=== PATIENT | male | born 1980 | race Caucasian/White ===

== ENCOUNTER 2018-05-03 13:43 | Emergency (ER) | payer OTHER ==
[~2018-05-03] VITALS: Ht 180.3 cm; Wt 100.4 kg
[~2018-05-03 13:43] MED LIST: CLIN300C8 PO
[2018-05-03] MEDS ORDERED: IV NORMAL SALINE 1000ML BAG 1,000 ML IV ONE (14:00)
[2018-05-03 14:07] LABS: BILIRUBIN,URINE NEGATIVE (NEG); CLARITY,URINE CLEAR; COLOR,URINE YELLOW; NITRITE,URINE NEGATIVE (NEG); PH,URINE 6.5; PROTEIN,URINE NEGATIVE (NEG-TRACE); UROBILINOGEN,URINE 0.2 mg/dL (0.2 mg/dL)
[2018-05-03 14:14] LABS: BACTERIA,URINE 0 /HPF (0-FEW); RBC,URINE 0 /HPF (0-2); WBC,URINE 0 /HPF (0-4)
[2018-05-03 14:25] LABS: BASO # 0.1 x10^3/uL (0.0-0.2); BASO % 1 % (0-3); EOS # 0.3 x10^3/uL (0.0-0.7); EOS % 3 % (0-3); HEMATOCRIT 45.5 % (39.0-53.0); LYMPH # 2.7 x10^3/uL (1.0-4.8); LYMPH % 26 % (24-48); MEAN CORPUSCULAR HEMOGLOBIN 32 pg (25-35); MEAN CORPUSCULAR HGB CONC 35 g/dL (31-37); MEAN CORPUSCULAR VOLUME 91 fL (79-100); MONO # 1.1 x10^3/uL (0.0-1.1); MONO % 11 % (0-9); NEUT % 59 % (31-73); PLATELET COUNT 389 x10^3/uL (140-400); RED BLOOD COUNT 5.01 x10^6/uL (4.30-5.70); RED CELL DISTRIBUTION WIDTH 13.8 % (11.5-14.5); WHITE BLOOD COUNT 10.2 x10^3/uL (4.0-11.0)
[2018-05-03] MEDS ORDERED: ONDANSETRON PF 4 MG/2 ML VIAL. IV ONE (14:30)
[2018-05-03] MEDS ORDERED: KETOROLAC 30 MG/ML VIAL. IV ONE (14:30)
[2018-05-03] MEDS ORDERED: IOHEXOL 300 MG/ML 100ML VIAL. IV ONE (14:45)
[2018-05-03] MEDS ORDERED: CONTRAST GIVEN. MC PRN (14:45)
[2018-05-03 15:05] LABS: CREATININE 0.9 mg/dL (0.7-1.3); GFR 94.4; POTASSIUM 3.7 mmol/L (3.5-5.1)
[2018-05-03 15:11] LABS: ALBUMIN 3.9 g/dL (3.4-5.0); ALBUMIN/GLOBULIN RATIO 1.1 (1.0-1.7); TOTAL BILIRUBIN 0.2 mg/dL (0.2-1.0); TOTAL PROTEIN 7.4 g/dL (6.4-8.2)
--- NOTE | 2018-05-03 15:47 | RAD ---
CT chest, abdomen and pelvis with contrast 05/03/2018 CLINICAL INDICATION: A days post cholecystectomy with pain radiating to the back. COMPARISON: None. TECHNIQUE: Multiple CT images of the chest, abdomen and pelvis were obtained following intravenous ministration of 75 mL Omnipaque 300. *One or more of the following individualized dose reduction techniques were utilized for this examination: 1. Automated exposure control. 2. Adjustment of the mA and/or kV according to patient size. 3. Use of iterative reconstruction technique. FINDINGS: Heart size is normal without significant pericardial effusion. The thoracic aorta is normal in caliber. No axillary, mediastinal or hilar lymphadenopathy. The central airways are patent. No pleural effusion, pneumothorax or focal consolidation. There are few prominent endplate Schmorl's node deformities in the thoracic spine. There is a small focal lucency at the T5 vertebral body which may represent focal osteopenia or benign intraosseous meningioma. Abdomen and pelvis: Liver, spleen, adrenal glands, pancreas and kidneys are unremarkable apart from a few bilateral right renal hypodensities which are too small to definitively characterize, though statistically likely cysts. No hydronephrosis. Cholecystectomy with no fluid collection in the operative bed. No abdominal free fluid. No pneumoperitoneum. Abdominal aorta is normal in caliber. Major portal veins are patent. No retroperitoneal or mesenteric lymphadenopathy. Small and large bowel loops are normal in caliber without obstruction. Prior appendectomy. Urinary bladder, prostate and seminal vesicles are unremarkable. No iliac or inguinal lymphadenopathy. Prominent Schmorl's node deformities at the inferior endplate of L1 and superior endplate of L3. IMPRESSION: CHEST: No acute thoracic process. Abdomen and pelvis: 1. Cholecystectomy with no gallbladder fossa loculated fluid collection, pneumoperitoneum or abdominal free fluid. 2. No acute abdominal or pelvic process. Electronically signed by: Neil Elizabeth MD (05/03/2018 3:43 PM) [facility]
--- NOTE | 2018-05-03 15:56 | PHYS DOC ---
Past Medical History Past Medical History: Kidney Stone Past Surgical History: Cholecystectomy, Other Additional Past Surgical Histo: kidney stone removal, flexor tendon repair left hand, left leg ORIF Additional Information: 1 PPD Alcohol Use: None Drug Use: None Adult General Chief Complaint Chief Complaint: ABDOMINAL PAIN HPI HPI Patient is a 37 year old male who presents with increased pain following a cholecystectomy 8 days ago. The patient states that the pain is shooting and through his back. He has been taking ibuprofen for pain. He denies shortness of breath or chest pain. Review of Systems Review of Systems Constitutional: Denies fever or chills [] Eyes: Denies change in visual acuity, redness, or eye pain [] HENT: Denies nasal congestion or sore throat [] Respiratory: Denies cough or shortness of breath [] Cardiovascular: No additional information not addressed in HPI [] GI: See history of present illness : Denies dysuria or hematuria [] Musculoskeletal: Denies back pain or joint pain [] Integument: Denies rash or skin lesions [] Neurologic: Denies headache, focal weakness or sensory changes [] Endocrine: Denies polyuria or polydipsia [] All other systems were reviewed and found to be within normal limits, except as documented in this note. Current Medications Current Medications Current Medications Medications (Trade) Dose Ordered Sig/Dimitrios Start Time Stop Time Status Last Admin Dose Admin Info (CONTRAST GIVEN -- Rx MONITORING) 1 each PRN DAILY PRN 05/03/18 14:45 05/05/18 14:44 Iohexol (Omnipaque 300 Mg/ml) 75 ml 1X ONCE 05/03/18 14:45 05/03/18 14:46 DC Ketorolac Tromethamine (Toradol 30mg Vial) 30 mg 1X ONCE 05/03/18 14:30 05/03/18 14:31 DC 05/03/18 14:31 30 MG Ondansetron HCl (Zofran) 4 mg 1X ONCE 05/03/18 14:30 05/03/18 14:31 DC 05/03/18 14:31 4 MG Sodium Chloride 1,000 ml @ 1,000 mls/hr 1X ONCE 05/03/18 14:00 05/03/18 14:59 DC 05/03/18 14:31 1,000 MLS/HR Allergies Allergies Allergies Coded Allergies Type Severity Reaction Last Updated Verified Penicillins Allergy Intermediate hives 03/22/14 Yes Physical Exam Physical Exam Constitutional: Well developed, well nourished, no acute distress, non-toxic appearance. [] Cardiovascular:Heart rate regular rhythm, no murmur [] Lungs & Thorax: Bilateral breath sounds clear to auscultation [] Abdomen: Bowel sounds normal, soft, moderate epigastric tenderness with no guarding, no masses, no pulsatile masses. [] Skin: Warm, dry, no erythema, no rash. [] Back: No tenderness, no CVA tenderness. [] Extremities: No tenderness, no cyanosis, no clubbing, ROM intact, no edema. [] Neurologic: Alert and oriented X 3, normal motor function, normal sensory function, no focal deficits noted. [] Psychologic: Affect normal, judgement normal, mood normal. [] Current Patient Data Vital Signs Vital Signs Date Time Temp Pulse Resp B/P (MAP) Pulse Ox O2 Delivery O2 Flow Rate FiO2 05/03/18 14:58 84 20 130/75 (93) Room Air 05/03/18 13:58 100 05/03/18 13:49 98.5 98.5 Lab Values Laboratory Tests Test 05/03/18 13:55 05/03/18 14:14 05/03/18 14:45 05/03/18 16:01 Urine Collection Type Unknown Urine Color Yellow Urine Clarity Clear Urine pH 6.5 Urine Specific [place] 1.015 Urine Protein Negative mg/dL (NEG-TRACE) Urine Glucose (UA) Negative mg/dL (NEG) Urine Ketones (Stick) Negative mg/dL (NEG) Urine Blood Negative (NEG) Urine Nitrite Negative (NEG) Urine Bilirubin Negative (NEG) Urine Urobilinogen Dipstick 0.2 mg/dL (0.2 mg/dL) Urine Leukocyte Esterase Negative (NEG) Urine RBC 0 /HPF (0-2) Urine WBC 0 /HPF (0-4) Urine Bacteria 0 /HPF (0-FEW) White Blood Count 10.2 x10^3/uL (4.0-11.0) Red Blood Count 5.01 x10^6/uL (4.30-5.70) Hemoglobin 16.0 g/dL (13.0-17.5) Hematocrit 45.5 % (39.0-53.0) Mean Corpuscular Volume 91 fL (79-100) Mean Corpuscular Hemoglobin 32 pg (25-35) Mean Corpuscular Hemoglobin Concent 35 g/dL (31-37) Red Cell Distribution Width 13.8 % (11.5-14.5) Platelet Count 389 x10^3/uL (140-400) Neutrophils (%) (Auto) 59 % (31-73) Lymphocytes (%) (Auto) 26 % (24-48) Monocytes (%) (Auto) 11 % (0-9) H Eosinophils (%) (Auto) 3 % (0-3) Basophils (%) (Auto) 1 % (0-3) Neutrophils # (Auto) 6.0 x10^3uL (1.8-7.7) Lymphocytes # (Auto) 2.7 x10^3/uL (1.0-4.8) Monocytes # (Auto) 1.1 x10^3/uL (0.0-1.1) Eosinophils # (Auto) 0.3 x10^3/uL (0.0-0.7) Basophils # (Auto) 0.1 x10^3/uL (0.0-0.2) Sodium Level 139 mmol/L (136-145) Potassium Level 3.7 mmol/L (3.5-5.1) Chloride Level 102 mmol/L (98-107) Carbon Dioxide Level 28 mmol/L (21-32) Anion Gap 9 (6-14) Blood Urea Nitrogen 12 mg/dL (8-26) Creatinine 0.9 mg/dL (0.7-1.3) Estimated GFR (Cockcroft-Gault) 94.4 BUN/Creatinine Ratio 13 (6-20) Glucose Level 89 mg/dL (70-99) Calcium Level 9.0 mg/dL (8.5-10.1) Total Bilirubin 0.2 mg/dL (0.2-1.0) Aspartate Amino Transferase (AST) 27 U/L (15-37) Alanine Aminotransferase (ALT) 69 U/L (16-63) H Alkaline Phosphatase 60 U/L (46-116) Total Protein 7.4 g/dL (6.4-8.2) Albumin 3.9 g/dL (3.4-5.0) Albumin/Globulin Ratio 1.1 (1.0-1.7) Stool Occult Blood Negative (NEG) Laboratory Tests 05/03/18 14:14 Laboratory Tests 05/03/18 14:45 EKG EKG [] Radiology/Procedures Radiology/Procedures [] Course & Med Decision Making Course & Med Decision Making Pertinent Labs and Imaging studies reviewed. (See chart for details) []The patient's labs and imaging were negative for an acute finding. The patient was given Toradol and Zofran in the emergency department for resolution of his symptoms. Dragon Disclaimer Dragon Disclaimer This electronic medical record was generated, in whole or in part, using a voice recognition dictation system. Departure Departure Impression: Primary Impression: Postoperative pain Disposition: HOME, SELF-CARE Condition: STABLE Referrals: NO PCP (PCP) Patient Instructions: Dumping Syndrome, Dumping Syndrome Diet, Pain Relief Preoperatively and Postoperatively Additional Instructions: Take the medication as directed. Do not drive or operate heavy machinery while taking this medication. Do not use ibuprofen as it might have caused gastritis causing your pain. Follow-up with your surgeon for recheck this week. If worsening return to the emergency department. Scripts Hydrocodone/Apap 5-325 (NORCO 5-325 TABLET) 1 Each Tablet 1 TAB PO PRN Q6HRS PRN for PAIN, #20 TAB 0 Refills Prov: MAYCOL VALENCIA APRN 05/03/18 MAYCOL VALENCIA APRN May 03, 2018 15:56
[2018-05-03 16:00] VITALS: BP 115/75
[2018-05-03 16:10] LABS: FECAL OB PT NEGATIVE (NEG)
[2018-05-03] MEDS ORDERED: HYDR-3164 PO (16:23)
== END 2018-05-03 16:29 | disposition home or self-care (01) ==
LOC: ER 13:43
DX: G89.18 Other acute postprocedural pain (principal); M54.9 Dorsalgia, unspecified; F17.200 Nicotine dependence, unspecified, uncomplicated; Z87.442 Personal history of urinary calculi; Z90.49 Acquired absence of other specified parts of digestive tract; Z88.0 Allergy status to penicillin
CPT/HCPCS: 36415; 71260; 74177; 80053; 81001; 82274; 85025; 96374; 96375; 99284; J1885; J2405; J7030; Q9967

== ENCOUNTER 2021-10-20 21:09 | Emergency (ER) | payer OTHER ==
[~2021-10-20] VITALS: Ht 180.3 cm; Wt 100.0 kg
[~2021-10-20 21:09] MED LIST changes: +CLIN-94 PO; -CLIN300C8 PO; +HYDR-3164 PO
[2021-10-20 21:10] VITALS: BP 145/104
--- NOTE | 2021-10-20 21:37 | PHYS DOC ---
Past Medical History Past Medical History: Kidney Stone Past Surgical History: Cholecystectomy, Other Additional Past Surgical Histo: kidney stone removal, flexor tendon repair left hand, left leg ORIF Smoking Status: Current Every Day Smoker Alcohol Use: None Drug Use: None General Adult EDM: Chief Complaint: HAND PROBLEM HPI: HPI: Patient is a 40 year old M who presents with pain in his left hand, severe, thr obbing, secondary to a series of surgeries he has had on the hand due to postoperative infection. Patient is visiting the area to see family and was admitted at another facility due to a reoccurrence of his prior infection. Patient says he was inpatient there for several days and did not like the treatment he was receiving and left AMA today and so was not prescribed any pain medication. Patient presents the ER complaining of pain in that hand, requesting pain medication to get him through the weekend until he returns to his town and is able to follow-up with his plastic surgeon. Patient denies any fevers or chills, is taking Keflex and doxycycline which she was previously prescribed for the hand infection. Review of Systems: Review of Systems: Constitutional: Denies fever or chills. [] Eyes: Denies change in visual acuity. [] HENT: Denies nasal congestion or sore throat. [] Respiratory: Denies cough or shortness of breath. [] Cardiovascular: Denies chest pain or edema. [] GI: Denies abdominal pain, nausea, vomiting, bloody stools or diarrhea. [] : Denies dysuria. [] Musculoskeletal: Denies back pain or joint pain. [] Integument: Denies rash. [] Neurologic: Denies headache, focal weakness or sensory changes. [] Endocrine: Denies polyuria or polydipsia. [] Lymphatic: Denies swollen glands. [] Psychiatric: Denies depression or anxiety. [] Heart Score: C/O Chest Pain: No Risk Factors: Risk Factors: DM, Current or recent (<one month) smoker, HTN, HLP, family history of CAD, obesity. Risk Scores: Score 0 - 3: 2.5% MACE over next 6 weeks - Discharge Home Score 4 - 6: 20.3% MACE over next 6 weeks - Admit for Clinical Observation Score 7 - 10: 72.7% MACE over next 6 weeks - Early Invasive Strategies Allergies: Allergies: Allergies Coded Allergies Type Severity Reaction Last Updated Verified Penicillins Allergy Intermediate hives 03/22/14 Yes Physical Exam: PE: Constitutional: Well developed, well nourished, no acute distress, non-toxic appearance. [] HENT: Normocephalic, atraumatic, bilateral external ears normal, oropharynx moist, no oral exudates, nose normal. [] Eyes: PERRLA, EOMI, conjunctiva normal, no discharge. [] Neck: Normal range of motion, no tenderness, supple, no stridor. [] Cardiovascular:Heart rate regular rhythm, no murmur [] Lungs & Thorax: Bilateral breath sounds clear to auscultation [] Abdomen: Bowel sounds normal, soft, no tenderness, no masses, no pulsatile masses. [] Skin: Warm, dry, no erythema, no rash. [] Back: No tenderness, no CVA tenderness. [] Extremities: L hand wrapped with giuseppe bandage, visible portion well appearing, good cap refill, normal skin tone, full ROM in spite of pain Neurologic: Alert and oriented X 3, normal motor function, normal sensory function, no focal deficits noted. [] Psychologic: Affect normal, judgement normal, mood normal. [] EKG: EKG: [] Radiology/Procedures: Radiology/Procedures: [] Course & Med Decision Making: Course & Med Decision Making Patient says that he is only here for pain control. Patient requesting pain medication prescription. Discussed medication options and explained to the patient I do not feel comfortable writing a prescription for controlled substance as his pain should be managed by his primary care physician or his surgeon. Agree to treat patient's pain in the ED tonight but referred him to follow-up with his regular physician tomorrow morning to see if they want a ride and a prescription for controlled substance. Patient says he is especially here for pain medication and does not want admission or further treatment for his hand infection. Dragon Disclaimer: Dragon Disclaimer: This electronic medical record was generated, in whole or in part, using a voice recognition dictation system. Departure Departure Referrals: NO PCP (PCP) CAITLIN VELASQUEZ MD October 20, 2021 21:37
[2021-10-20] MEDS ORDERED: oxyCODONE/APAP 5/325 1 TAB TABLET PO ONE (21:45)
[2021-10-20] MEDS ORDERED: IBUPROFEN 200 MG TABLET. PO ONE (21:45)
== END 2021-10-20 21:55 | disposition home or self-care (01) ==
LOC: ER 21:09
DX: M79.642 Pain in left hand (principal); F17.200 Nicotine dependence, unspecified, uncomplicated; Z88.0 Allergy status to penicillin
CPT/HCPCS: 99283